=== PATIENT | male | born 1955 | race African-American/Black ===

== ENCOUNTER 2021-10-14 05:01 | Inpatient (IN) | payer OTHER ==
[~2021-10-14] VITALS: Ht 170.2 cm; Wt 45.5 kg
[2021-10-14] MEDS ORDERED: 0.9% SODIUM CHLORIDE 10 ML SYRINGE IVP PRN (05:30)
[2021-10-14] MEDS ORDERED: SODIUM CHLORIDE 0.9% 500 ML IV ONE ×2 (05:30→20:53)
[2021-10-14 05:50] LABS: ABG HCO3 15.5 mmol/L (22.0-26.0); ABG METHEMOGLOBIN 0.3 % (0.0-1.5); ABG OXYGEN CONTENT 12.2 mL/dL (15.0-23.0); ABG OXYGEN SATURATION 88.6 % (95.0-98.0); ABG OXYHEMOGLOBIN 88.3 % (94.0-100.0); ABG PH 7.446 (7.35-7.450); ABG TOTAL HEMOGLOBIN 9.8 G/dL (12.0-18.0); PO2, ARTERIAL BG 59.9 mmHg (79.0-87.0); SOURCE, BLOOD GAS ARTERIAL; TEMPERATURE, FAHRENHEIT, BG 98.9 FAHREN (96.0-98.6)
[2021-10-14 05:54] LABS: ANION GAP 20 mmol/L (8-16); CALCIUM, TOTAL 8.8 mg/dL (8.8-10.5); CARBON DIOXIDE 12 mmol/L (22-29); CHLORIDE 101 mmol/L (98-107); CREATININE 1.84 mg/dL (0.60-1.30); GLOMERULAR FILTR. RATE CALC 44 mL/min (>60); GLUCOSE,RANDOM 63 mg/dL (70-110); POTASSIUM 5.1 mmol/L (3.5-5.1); SODIUM SERUM 133 mmol/L (136-145); UREA NITROGEN, BLOOD 15 mg/dL (7-18)
[2021-10-14 05:55] LABS: ABG PCO2 16 mmHg (35-45); O2 DEVICE,BLOOD GAS CANNULA (ROOM AIR); SITE, BLOOD GAS RT RADIAL
[2021-10-14 06:02] LABS: AMMONIA 110 umol/L (11-32)
[2021-10-14 06:10] LABS: ALANINE AMINOTRANSFERASE 60 U/L (12-78); ALBUMIN 2.3 g/dL (3.4-5.0); ALKALINE PHOSPHATASE 79 U/L (46-116); ASPARTATE AMINOTRANSFERASE 104 U/L (15-37); BILIRUBIN,TOTAL 3.7 mg/dL (0.1-1.0); CREATINE KINASE, TOTAL ONLY 119 U/L (39-308); TOTAL PROTEIN, SERUM 5.4 g/dL (6.4-8.2)
[2021-10-14] MEDS ORDERED: VANCOMYCIN 1GM/WATER(PEG/NADA) 200 ML IV ONE (06:15)
[2021-10-14] MEDS ORDERED: PIPERACILLIN SODIUM/TAZOBACTAM 4.5 GM in DEXTROSE 5%-WATER 100 ML IV ONE (06:15)
[2021-10-14 06:23] LABS: BASOPHILS % (AUTO) 0.2 % (0.0-2.0); EOSINOPHILS % (AUTO) 0.1 % (1.0-6.0); HEMATOCRIT 28.2 % (41-53); HEMOGLOBIN 9.8 g/dL (13.5-17.5); LYMPHOCYTES # (AUTO) 0.2 K/uL (1.0-4.8); LYMPHOCYTES % (AUTO) 2.9 % (22.0-44.0); MEAN CORPUSCULAR HEMOGLOBIN 41.3 pg (26.0-34.0); MEAN CORPUSCULAR HGB CONC 34.8 G/dL (31.0-37.0); MEAN CORPUSCULAR VOLUME 119 fL (80-100); MONOCYTES # (AUTO) 0.6 K/uL (0.1-1.0); MONOCYTES % (AUTO) 8.2 % (2.0-9.0); NEUTROPHILS # (AUTO) 6.9 K/uL (1.8-7.7); PLATELET COUNT (AUTO) 90 K/uL (150-450); RED BLOOD CELL COUNT(AUTO) 2.37 MIL/uL (4.50-5.90); RED CELL DISTRIBUTION WIDTH 14.2 % (11.5-14.5)
[2021-10-14 06:34] LABS: D-DIMER 7.22 mg/L FEU (0.00-0.50); INR 3.7 (0.9-1.1); PROTHROMBIN TIME 37.1 SEC (9.4-11.6)
[2021-10-14 06:39] LABS: B-TYPE NATRIURETIC PEPTIDE 33 pg/mL (0-100)
[2021-10-14 06:44] LABS: NEUTROPHILS % (AUTO) 88.6 % (40.0-70.0); PLATELET MORPHOLOGY COMMENT LARGE PLTS PRESENT
[2021-10-14] MEDS ORDERED: SODIUM CHLORIDE 0.9% 100 ML ONE (06:44)
[2021-10-14] MEDS ORDERED: IOHEXOL 350 MG/ML 100 ML VIAL ONE (06:44)
[2021-10-14 07:03] LABS: COVID AG,FIA SOURCE NASAL SWAB
[2021-10-14] MEDS ORDERED: LACTULOSE 20 GM/30 ML SOLUTION UDCUP PO ONE (08:15)
[2021-10-14] MEDS ORDERED: MULTIVITAMINS WITH MINERALS, THERAPEUTIC TABLET PO SCH (09:15)
[2021-10-14] MEDS ORDERED: ACETAMINOPHEN 325 MG TABLET PO PRN (09:15)
[2021-10-14] MEDS: LACTULOSE 20 GM/30 ML SOLUTION UDCUP PO SCH ×2 (09:15→15:15)
[2021-10-14] MEDS ORDERED: PANTOPRAZOLE SODIUM 40 MG/VIAL IVP SCH (09:15)
[2021-10-14] MEDS ORDERED: PHYTONADIONE 10 MG/1 ML AMP SQ ONE (09:15)
[2021-10-14] MEDS ORDERED: 1: MAGNESIUM SULFATE 2 GM, MVI, ADULT NO.1 WITH VIT K 10 ML, THIAMINE 100 MG, FOLIC ACID IV SCH ×5 (10:00)
[2021-10-14 12:00] VITALS: BP 103/54
[2021-10-14] MEDS ORDERED: DEXTROSE 50%-WATER 25 GM/50 ML SYRINGE IVP PRN (14:00)
[2021-10-14] MEDS ORDERED: CefTRIAXone SODIUM 2 GM in DEXTROSE 5%-WATER 50 ML IV SCH (15:00)
[2021-10-14] MEDS ORDERED: SODIUM CHLORIDE 0.9% 250 ML IV ONE (15:03)
[2021-10-14 16:00] VITALS: BP 103/54
[2021-10-14] MEDS: NOREPINEPHRINE 4 MG/D5%-WATER 250 ML IV PRN ×2 (16:00→19:05)
[2021-10-14] MEDS ORDERED: DOXYCYCLINE HYCLATE 100 MG in DEXTROSE 5%-WATER 100 ML IV SCH (16:00)
[2021-10-14] MEDS ORDERED: FentaNYL CIT 1000MCG/0.9% NACL 100 ML IV PRN ×2 (16:30→16:45)
[2021-10-14] MEDS ORDERED: PROPOFOL 1000 MG/ISO-OSM 100 ML IV PRN ×2 (16:30→16:45)
[2021-10-14 16:39] LABS: ABG BASE EXCESS -25.4 mmol/L (-2.0-3.0); ABG CARBOXYHEMOGLOBIN 0.3 % (0.0-1.5); ABG METHEMOGLOBIN 0.1 % (0.0-1.5); ABG OXYGEN CONTENT 13.2 mL/dL (15.0-23.0); ABG OXYGEN SATURATION 90.5 % (95.0-98.0); ABG OXYHEMOGLOBIN 90.1 % (94.0-100.0); ABG PCO2 41 mmHg (35-45); ABG TOTAL HEMOGLOBIN 10.3 G/dL (12.0-18.0); PO2, ARTERIAL BG 94.1 mmHg (79.0-87.0); SOURCE, BLOOD GAS ARTERIAL; TEMPERATURE, FAHRENHEIT, BG 96.9 FAHREN (96.0-98.6)
[2021-10-14 16:40] LABS: ABG HCO3 6.7 mmol/L (22.0-26.0); ABG PH 6.893 (7.35-7.450); SITE, BLOOD GAS RT RADIAL
[2021-10-14 16:41] LABS: ABG A-A DIFF O2 580.5 mmHg (10-20.0); O2 DEVICE,BLOOD GAS VENTILATOR (ROOM AIR); PEEP,BG 5 cm H2O; VT, ABG 450 ml
[2021-10-14] MEDS ORDERED: SODIUM BICARBONATE 150 MEQ in DEXTROSE 5%-WATER 1,000 ML IV SCH (17:00)
[2021-10-14] MEDS ORDERED: SODIUM BICARBONATE [ADULT] 8.4% 50 MEQ/50 ML SYRINGE IVP ONE (17:00)
[2021-10-14] MEDS ORDERED: VASOPRESSIN 40 UNITS in DEXTROSE 5%-WATER 98 ML IV PRN (17:15)
[2021-10-14 17:41] LABS: GLUCOSE,POINT OF CARE 205 MG/DL (70-110)
[2021-10-14 17:41] LABS: GLUCOSE,POINT OF CARE 165 MG/DL (70-110)
[2021-10-14] MEDS ORDERED: BARIUM SULFATE 0.1% SUSPENSION 450 ML BOTTLE ONE (18:07)
[2021-10-14] MEDS ORDERED: BARIUM SULFATE 0.1% SUSPENSION 450 ML BOTTLE PO ONE ×2 (18:30)
[2021-10-14] MEDS ORDERED: PHENYLEPHRINE 200 MG/D5%-WATER 250 ML IV PRN (19:30)
[2021-10-14 20:31] LABS: ABG CARBOXYHEMOGLOBIN 0.7 % (0.0-1.5); ABG METHEMOGLOBIN 0.3 % (0.0-1.5); ABG OXYHEMOGLOBIN 62.4 % (94.0-100.0); ABG TOTAL HEMOGLOBIN 9.4 G/dL (12.0-18.0); SOURCE, BLOOD GAS ARTERIAL; TEMPERATURE, FAHRENHEIT, BG 91.3 FAHREN (96.0-98.6)
[2021-10-14 20:34] LABS: ABG BASE EXCESS -16.8 mmol/L (-2.0-3.0); ABG HCO3 12.1 mmol/L (22.0-26.0); ABG PCO2 34 mmHg (35-45)
[2021-10-14 20:37] LABS: ABG PH 7.166 (7.35-7.450); PO2, ARTERIAL BG 38.7 mmHg (79.0-87.0); SITE, BLOOD GAS RT BRACHIAL
[2021-10-14 20:40] LABS: ABG A-A DIFF O2 650.8 mmHg (10-20.0); O2 DEVICE,BLOOD GAS VENTILATOR (ROOM AIR); PEEP,BG 5 cm H2O; VT, ABG 455 ml
[2021-10-14] MEDS ORDERED: RINGERS SOLUTION,LACTATED 1,000 ML IV ONE (20:52)
[2021-10-14] MEDS ORDERED: RINGERS SOLUTION,LACTATED 500 ML IV ONE (21:00)
[2021-10-14] MEDS ORDERED: EPINEPHrine 2 MG in DEXTROSE 5%-WATER 248 ML IV PRN (21:15)
[2021-10-14] MEDS ORDERED: DOPamine 400MG/D5W[STANDARD] 250 ML IV PRN (21:15)
[2021-10-14 21:35] VITALS: BP 68/47
[2021-10-14 21:56] LABS: GLUCOSE,POINT OF CARE 39 MG/DL (70-110)
[2021-10-14 21:56] LABS: GLUCOSE,POINT OF CARE 43 MG/DL (70-110)
[2021-10-14 21:56] LABS: GLUCOSE,POINT OF CARE 44 MG/DL (70-110)
[2021-10-14] MEDS ORDERED: HEPARIN SODIUM,PORCINE 1,000 UNITS/ML VIAL IVCATH ONE ×2 (23:30)
== END 2021-10-15 00:45 | DRG 208 ==
LOC: EMS 05:05 → ICU 09:46
PROVIDERS: ADMIT Internal Medicine; ATTEND Internal Medicine
PROC: 5A09357 Assistance with Respiratory Ventilation, Less than 24 Consecutive Hours, Continuous Positive Airway Pressure (ICD-10-PCS; principal; 2021-10-14)
PROC: 5A1935Z Respiratory Ventilation, Less than 24 Consecutive Hours (ICD-10-PCS; 2021-10-14)
PROC: 0BH17EZ Insertion of Endotracheal Airway into Trachea, Via Natural or Artificial Opening (ICD-10-PCS; 2021-10-14)
PROC: 04HY32Z Insertion of Monitoring Device into Lower Artery, Percutaneous Approach (ICD-10-PCS; 2021-10-14)
DX: J96.01 Acute respiratory failure with hypoxia (principal); E43 Unspecified severe protein-calorie malnutrition; J69.0 Pneumonitis due to inhalation of food and vomit; D68.9 Coagulation defect, unspecified; E87.3 Alkalosis; J84.9 Interstitial pulmonary disease, unspecified; N17.9 Acute kidney failure, unspecified; E87.2 Acidosis; Z68.1 Body mass index [BMI] 19.9 or less, adult; Z99.11 Dependence on respirator [ventilator] status; K72.90 Hepatic failure, unspecified without coma; Z66 Do not resuscitate; K70.30 Alcoholic cirrhosis of liver without ascites; Z20.822 Contact with and (suspected) exposure to COVID-19; D63.8 Anemia in other chronic diseases classified elsewhere; D69.6 Thrombocytopenia, unspecified; F10.10 Alcohol abuse, uncomplicated; I46.9 Cardiac arrest, cause unspecified; R62.7 Adult failure to thrive; F17.210 Nicotine dependence, cigarettes, uncomplicated; K21.9 Gastro-esophageal reflux disease without esophagitis
CPT/HCPCS: 36600; 71045; 71275; 80053; 82140; 82550; 82805; 82962; 83605; 83880; 84145; 84484; 85025; 85379; 85610; 85730; 86635; 87040; 87081; 93005; 94002; 94660; 99291; C9113; G0378; J0171; J0696; J1265; J2370; J2543; J2704; J3411; J3430; J3475; J3490; J7030; J7040; J7050; J7060; J7120; Q9967; 36415-L1; 36415-TC; U0003